=== PATIENT | female | born 1945 ===

== ENCOUNTER 2017-12-21 12:15 | Emergency (ER) | payer MEDICARE ==
[2017-12-21 12:16] VITALS: BMI 23.2
[2017-12-21 12:59] VITALS: TEMP 98.3; O2SAT 99
[2017-12-21] MEDS ORDERED: DiphenhydrAMINE 50 mg/ml Inj IVP STA (13:09)
[2017-12-21] MEDS ORDERED: DiphenhydrAMINE 50 mg/ml Inj ONE (13:21)
--- NOTE | 2017-12-21 13:40 | C.PDOC ---
History Of Present Illness 72-year-old female BIBA complaining of diffuse headache, light headedness, and nausea that started at approx 11am today. She denies visual changes, fever, back pain, dizziness, chest pain, sensory changes, extremity weakness, slurred speech, facial droop, abdominal pain, vomiting/diarrhea, or any oither associated symptoms. Time Seen by Provider: 12/21/17 12:28 Chief Complaint (Nursing): Headache History Per: Patient History/Exam Limitations: no limitations Onset/Duration Of Symptoms: Days Current Symptoms Are (Timing): Still Present Severity: Mild Past Medical History Reviewed: Historical Data, Nursing Documentation, Vital Signs Vital Signs: Last Vital Signs Temp 98.3 F 12/21/17 12:20 Pulse 75 12/21/17 14:05 Resp 12 12/21/17 14:05 BP 170/58 H 12/21/17 14:05 Pulse Ox 99 12/21/17 22:42 - Medical History PMH: HTN, Hypothyroidism Surgical History: Appendectomy Family History: States: No Known Family Hx - Social History Hx Tobacco Use: No Hx Alcohol Use: No Hx Substance Use: No Review Of Systems Constitutional: Negative for: Fever, Chills Cardiovascular: Positive for: Light Headedness. Negative for: Chest Pain, Palpitations Respiratory: Negative for: Cough, Shortness of Breath Gastrointestinal: Positive for: Nausea. Negative for: Vomiting Musculoskeletal: Negative for: Neck Pain, Back Pain Skin: Negative for: Rash Neurological: Positive for: Headache. Negative for: Weakness, Numbness, Incoordination, Change in Speech, Confusion, Seizures, Altered Mental Status Physical Exam - Physical Exam Appears: Well, Non-toxic, No Acute Distress Skin: Normal Color, Warm, Dry Head: Atraumatic, Normacephalic Eye(s): bilateral: Normal Inspection (no nystagmus), PERRL, EOMI Oral Mucosa: Moist Neck: Normal, Normal ROM Cardiovascular: Rhythm Regular, No Murmur Respiratory: Normal Breath Sounds, No Rales, No Rhonchi, No Wheezing Gastrointestinal/Abdominal: Normal Exam, Bowel Sounds, Soft, No Tenderness Extremity: Normal ROM, No Pedal Edema, No Calf Tenderness Neurological/Psych: Oriented x3, Normal Speech, Normal Cognition, Normal Cranial Nerves, No Cerebellar Signs, Normal Motor, Normal Sensation, Normal Reflexes Gait: Steady ED Course And Treatment - Laboratory Results Result Diagrams: 12/21/17 13:34 12/21/17 13:34 O2 Sat by Pulse Oximetry: 99 (RA) Pulse Ox Interpretation: Normal - CT Scan/US CT HEAD Other Rad Studies (CT/US): Read By Radiologist, Radiology Report Reviewed CT/US Interpretation: Accession No. : [id number]. Patient Name / ID : MARIBEL SLOAN / [id number]. Exam Date : 12/21/2017 13:40:07 ( Approved ). Study Comment : Sex / Age : F / [id number]. Creator : José Ellis MD. Dictator : José Ellis MD. Dental Office Coordinator : [employer] : José Ellis MD. Approver2 : Report Date : 12/21/2017 14:02:35. My Comment : . PROCEDURE: CT HEAD WITHOUT CONTRAST. HISTORY: acute headache, elevated bp, r/o bleed. COMPARISON: None available. TECHNIQUE: Axial computed tomography images were obtained through the head/brain without intravenous contrast. Radiation dose: Total exam DLP = 860.3 mGy-cm. This CT exam was performed using one or more of the following dose reduction techniques: Automated exposure control, adjustment of the mA and/or kV according to patient size, and/or use of iterative reconstruction technique. FINDINGS: HEMORRHAGE: No intracranial hemorrhage. BRAIN: No mass effect or edema. Atrophy. Chronic microvascular ischemic changes. 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 VENTRICLES: Prominent. No hydrocephalus. CALVARIUM: Probable left frontal convexity calcified meningioma. PARANASAL SINUSES: Right sphenoid sinus opacification. Mild to moderate left sphenoid sinus mucosal thickening. MASTOID AIR CELLS: Unremarkable as visualized. No inflammatory changes. OTHER FINDINGS: None. IMPRESSION: No acute intracranial pathology. Paranasal sinus disease as described above. Progress Note: Blood work, EKG, CT head ordered and reviewed. Patient given IV Reglan and IV Benadryl. Reevaluation Time: 15:45 Reassessment Condition: Improved (Patient reassessed, is resting comfortably and states her headache has resolved. Patient is well appearing and comfortable being discharged home. Patient given Rx for Fiorecet, and was instructed to follow up with PMD/clinic in 1-2 days. She understands she should return to ED if symptoms worsen.) Disposition Counseled Patient/Family Regarding: Studies Performed, Diagnosis, Need For Followup, Rx Given - Disposition Referrals: [facility] [Outside] Disposition: HOME/ ROUTINE Disposition Time: 15:45 Condition: STABLE Additional Instructions: FOLLOW UP WITH YOUR DOCTOR/CLINIC IN 1-2 DAYS USE MEDICATION NEEDED FOR HEADACHES MAKE SURE YOU TAKE YOUR BLOOD PRESSURE MEDICATIONS DAILY RETURN TO ER IF SYMPTOMS WORSEN/RETURN Prescriptions: Acetaminophen/Butalbital/Caf [Fioricet] 1 tab PO TID PRN #20 tab PRN Reason: Headache Instructions: Headache, Adult (DC) Forms: General Discharge Instructions, [facility] (Moldovan) Print Language: KAZAKH - Clinical Impression Clinical Impression: Headache - Scribe Statement The provider has reviewed the documentation as recorded by the Scribe (Li Dockery) All medical record entries made by the Scribe were at my direction and personally dictated by me. I have reviewed the chart and agree that the record accurately reflects my personal performance of the history, physical exam, medical decision making, and the department course for this patient. I have also personally directed, reviewed, and agree with the discharge instructions and disposition.
[2017-12-21 13:43] LABS: BASO # 0.1 K/uL (0.0-0.2); BASO % 0.7 % (0.0-2.0); EOS # 0.1 K/uL (0.0-0.7); HEMOGLOBIN 11.7 g/dL (11.0-16.0); LYMPH % 20.3 % (20.0-40.0); MEAN CELL VOLUME 85.8 fL (81.0-99.0); MEAN CORPUSCULAR HEMOGLOBIN 28.6 pg (27.0-31.0); MEAN CORPUSCULAR HGB CONC 33.3 g/dL (33.0-37.0); MONO # 0.7 K/uL (0.0-0.8); MONO % 6.8 % (0.0-10.0); NEUT # 6.9 K/uL (1.8-7.0); NEUT % 71.2 % (50.0-75.0); NRBC % 0.1 % (0.0-2.0); RBC 4.1 Mil/uL (3.80-5.20); RED CELL DISTRIBUTION WIDTH 16.1 % (11.5-14.5); WHITE BLOOD COUNT 9.8 K/uL (4.8-10.8)
[2017-12-21 14:03] LABS: ALB/GLOB RATIO 1.2 (1.0-2.1); ALBUMIN 4.3 g/dL (3.5-5.0); ALT/SGPT 25 U/L (9-52); AST/SGOT 25 U/L (14-36); BLOOD UREA NITROGEN 12 mg/dL (7-17); CALCIUM 9.1 mg/dl (8.6-10.4); GFR AFRICAN-AMERICAN > 60; GFR NON-AFRICAN AMERICAN > 60
--- NOTE | 2017-12-21 14:04 | CT ---
PROCEDURE: CT HEAD WITHOUT CONTRAST. HISTORY: acute headache, elevated bp, r/o bleed COMPARISON: None available. TECHNIQUE: Axial computed tomography images were obtained through the head/brain without intravenous contrast. Radiation dose: Total exam DLP = 860.3 mGy-cm. This CT exam was performed using one or more of the following dose reduction techniques: Automated exposure control, adjustment of the mA and/or kV according to patient size, and/or use of iterative reconstruction technique. FINDINGS: HEMORRHAGE: No intracranial hemorrhage. BRAIN: No mass effect or edema. Atrophy. Chronic microvascular ischemic changes. 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 VENTRICLES: Prominent. No hydrocephalus. CALVARIUM: Probable left frontal convexity calcified meningioma. PARANASAL SINUSES: Right sphenoid sinus opacification. Mild to moderate left sphenoid sinus mucosal thickening. MASTOID AIR CELLS: Unremarkable as visualized. No inflammatory changes. OTHER FINDINGS: None. IMPRESSION: No acute intracranial pathology. Paranasal sinus disease as described above.
[2017-12-21 14:05] LABS: PROTHROMBIN TIME 11.4 SECONDS (9.7-12.2)
[2017-12-21 14:10] LABS: CK-MB 0.51 ng/mL (0.0-3.38)
[2017-12-21 14:15] VITALS: BP 170/58; PULSE 75; RESP 12
== END 2017-12-21 15:47 | disposition home or self-care (01) ==
LOC: C.ER 12:15
DX: R51 Headache (principal)
CPT/HCPCS: 70450; 80053; 82550; 82553; 84484; 85025; 85610; 85730; 96374; 96375; 99285; J1200; J2765